=== PATIENT | female | born 1960 | race Caucasian/White ===

== ENCOUNTER → 2017-07-25 | Outpatient (REF) | payer BC | LOC: M LAB REF 15:59 | PROVIDERS: ATTEND Podiatrist | DX: L03.031 Cellulitis of right toe (principal) ==

== ENCOUNTER → 2017-10-25 | Outpatient (REF) | payer BC | LOC: M SFHCWAGY 16:09 | PROVIDERS: ATTEND Nurse Practitioner Family | DX: Z12.4 Encounter for screening for malignant neoplasm of cervix (principal) ==

== ENCOUNTER → 2017-10-25 | Outpatient (CLI) | payer BC ==
--- NOTE | 2017-10-25 16:36 | REPMRS ---
Patient History The patient states she had a clinical breast exam in 10/2017. Patient is postmenopausal. Family history of prostate cancer in father at age 50 or over and pancreatic cancer in paternal grandmother. Taking unspecified hormones for 7 years. Digital Woman Screen Mammo: October 25, 2017 - Exam #: [id number] Bilateral CC and MLO view(s) were taken. Technologist: Jasmin Longoria, Technologist Prior study comparison: September 07, 2016, digital woman screen mammo performed at [facility]. July 14, 2015, digital woman screen mammo performed at [facility]. June 23, 2014, digital woman screen mammo performed at [facility] [place]. FINDINGS: There are scattered fibroglandular densities. There has been no change in the appearance of the mammogram from the prior studies. There is a mild amount of scattered fibroglandular density which is fairly symmetric. There is no interval development of dominant mass, architectural distortion, or clustered microcalcification suggestive of malignancy. ASSESSMENT: BI-RADS/ACR category 1 mammogram. Negative. Recommendation Routine screening mammogram in 1 year (for women over age 40). This mammogram was interpreted with the aid of an FDA-approved computer-aided dectection system. Electronically Signed By: Adonis Proctor MD 10/25/17 4515
== END ==
LOC: M WHC 15:27
PROVIDERS: ATTEND Nurse Practitioner Family
DX: Z12.31 Encounter for screening mammogram for malignant neoplasm of breast (principal)

== ENCOUNTER → 2019-04-24 | Outpatient (REF) | payer BC ==
[2019-04-26 15:14] LABS: HPV HYBRID CAPTURE II Negative (Negative)
== END ==
LOC: M SFHCWAGY 15:58
PROVIDERS: ATTEND Nurse Practitioner Family
DX: Z12.4 Encounter for screening for malignant neoplasm of cervix (principal)
CPT/HCPCS: 87624; G0123

== ENCOUNTER → 2019-04-24 | Outpatient (CLI) | payer BC ==
--- NOTE | 2019-04-24 16:41 | REPMRS ---
Patient History The patient states she had a clinical breast exam in 04/2019. Patient is postmenopausal. Family history of prostate cancer at age 50 or over in father, pancreatic cancer in paternal grandmother. Taking unspecified hormones for 8 years 6 months. Digital Woman Screen Mammo: April 24, 2019 - Exam #: [id number] Bilateral CC and MLO view(s) were taken. Technologist: Jasmin Longoria, Technologist Prior study comparison: October 25, 2017, digital woman screen mammo performed at [facility] [employer] [facility]. September 07, 2016, digital woman screen mammo performed at [facility]. July 14, 2015, digital woman screen mammo performed at [facility] [employer] [facility]. FINDINGS: There are scattered fibroglandular densities. There has been no change in the appearance of the mammogram from the prior studies. There is a mild amount of scattered fibroglandular density which is fairly symmetric. There is no interval development of dominant mass, architectural distortion, or clustered microcalcification suggestive of malignancy. 3-D tomosynthesis shows no additional findings. Assessment: BI-RADS/ACR category 1 mammogram. Negative Mammogram. Recommendation Routine screening mammogram of both breasts in 1 year (for women over age 40). This patient's Lifetime Breast Cancer RIsk is estimated at 7.5 %. This mammogram was interpreted with the aid of an FDA-approved computer-aided dectection system. Electronically Signed By: Adonis Proctor MD 04/24/19 1640
== END ==
LOC: M WHC 15:21
PROVIDERS: ATTEND Nurse Practitioner Family
DX: Z12.31 Encounter for screening mammogram for malignant neoplasm of breast (principal)

== ENCOUNTER → 2020-09-15 | Outpatient (CLI) | payer BC ==
--- NOTE | 2020-09-15 16:34 | REPMRS ---
Patient History The patient states she had a clinical breast exam in 2019. Family history of prostate cancer at age 50 or over in father, pancreatic cancer in paternal grandmother. Taking unspecified hormones for 8 years 6 months. 3D TOMOSYNTHESIS WAS PERFORMED. The Shania Ordonez lifetime risk for breast cancer is 7.1%. Volpara breast density b. Digital Woman Screen Mammo: September 15, 2020 - Exam #: [id number] Bilateral CC and MLO view(s) were taken. Technologist: Lexy Simeon, Technologist Prior study comparison: April 24, 2019, bilateral digital woman screen mammo performed at [facility]. October 25, 2017, digital woman screen mammo performed at [facility]. FINDINGS: There are scattered fibroglandular densities. There has been no change in the appearance of the mammogram from the prior studies. There is a mild amount of residual fibroglandular tissue which is fairly symmetric. There is no interval development of dominant mass, architectural distortion, or clustered microcalcification suggestive of malignancy. Assessment: BI-RADS/ACR category 1 mammogram. Negative Mammogram. Recommendation Routine screening mammogram in 1 year (for women over age 40). This mammogram was interpreted with the aid of an FDA-approved computer-aided dectection system. Electronically Signed By: Frederick Lane MD 09/15/20 0828
== END ==
LOC: M WHC 14:57
PROVIDERS: ATTEND Nurse Practitioner Family
DX: Z12.31 Encounter for screening mammogram for malignant neoplasm of breast (principal); Z80.42 Family history of malignant neoplasm of prostate; Z80.0 Family history of malignant neoplasm of digestive organs

== ENCOUNTER 2023-06-18 06:58 | Day surgery (SDC) | payer BC ==
[~2023-06-18] VITALS: Ht 154.9 cm; Wt 79.3 kg
[~2023-06-18 06:58] MED LIST: ASPI81TA26 PO; BSS IRRIG/VANCO(10MG)/TOBRA(5MG)/EPINEPH(1:1000-0.5CC)500ML BAG-ORONLY IR ONE; CYCLOPENTOLATE 1% OPHTH SOLN 2ML BTL OD SCH; LIDOCAINE 3.5 % 1ML OPHTH TOPICAL GEL OU ONE; OFLOXACIN 0.3 % (OCUFLOX) OPTH SOL 5ML OD ONE; PHENYLEPHRINE 10% OPHTH SOL 5ML OD PRN; PHENYLEPHRINE 2.5% OPHTH SOL 2ML OD SCH; SERT50TA29 PO; SYNT100T PO; SYNT88TA2 PO; TROPICAMIDE 1% OPHTH SOLN 15ML OD SCH; VITA100093 PO
[2023-06-18] MEDS ORDERED: LIDOCAINE 1% SDV 5ML VIAL As Ordered ONE (07:11)
[2023-06-18] MEDS ORDERED: MIDAZOLAM INJ 2MG/2ML VIAL As Ordered ONE (07:57)
[2023-06-18] MEDS ORDERED: fentaNYL 100 MCG/2 ML INJECTION As Ordered ONE (07:57)
[2023-06-18 08:53] VITALS: BP 125/93; TEMP 97.5; O2SAT 97
== END 2023-06-18 09:05 | disposition home or self-care (01) ==
LOC: M SDC 06:58
PROVIDERS: ATTEND Ophthalmology
DX: H25.11 Age-related nuclear cataract, right eye (principal); I10 Essential (primary) hypertension; E03.9 Hypothyroidism, unspecified; K21.9 Gastro-esophageal reflux disease without esophagitis; Z88.0 Allergy status to penicillin; Z79.82 Long term (current) use of aspirin; Z79.899 Other long term (current) drug therapy
CPT/HCPCS: 66984; 92015; J2250; J3010; V2788

== ENCOUNTER 2023-07-12 07:01 | Day surgery (SDC) | payer BC ==
[~2023-07-12] VITALS: Ht 154.9 cm; Wt 78.5 kg
[~2023-07-12 07:01] MED LIST changes: -CYCLOPENTOLATE 1% OPHTH SOLN 2ML BTL OD SCH; +CYCLOPENTOLATE 1% OPHTH SOLN 2ML BTL OS SCH; +LIDOCAINE 1% SDV 5ML VIAL As Ordered ONE; -OFLOXACIN 0.3 % (OCUFLOX) OPTH SOL 5ML OD ONE; +OFLOXACIN 0.3 % (OCUFLOX) OPTH SOL 5ML OS ONE; -PHENYLEPHRINE 10% OPHTH SOL 5ML OD PRN; +PHENYLEPHRINE 10% OPHTH SOL 5ML OS PRN; -PHENYLEPHRINE 2.5% OPHTH SOL 2ML OD SCH; +PHENYLEPHRINE 2.5% OPHTH SOL 2ML OS SCH; -TROPICAMIDE 1% OPHTH SOLN 15ML OD SCH; +TROPICAMIDE 1% OPHTH SOLN 15ML OS SCH
[2023-07-12] MEDS ORDERED: fentaNYL 100 MCG/2 ML INJECTION As Ordered ONE (08:09)
[2023-07-12] MEDS ORDERED: MIDAZOLAM INJ 2MG/2ML VIAL As Ordered ONE (08:09)
[2023-07-12 08:24] VITALS: BP 132/60; TEMP 97.2; O2SAT 94
== END 2023-07-12 08:43 | disposition home or self-care (01) ==
LOC: M SDC 07:01
PROVIDERS: ATTEND Ophthalmology
DX: H25.12 Age-related nuclear cataract, left eye (principal); I10 Essential (primary) hypertension; E03.9 Hypothyroidism, unspecified; K21.9 Gastro-esophageal reflux disease without esophagitis; R06.83 Snoring; Z79.82 Long term (current) use of aspirin; Z79.899 Other long term (current) drug therapy
CPT/HCPCS: 66984; 92015; J2250; J3010; V2788

== ENCOUNTER → 2024-05-27 | Outpatient (CLI) | payer MEDICARE, BC ==
[~2024-05-27] MED LIST changes: -BSS IRRIG/VANCO(10MG)/TOBRA(5MG)/EPINEPH(1:1000-0.5CC)500ML BAG-ORONLY IR ONE; -CYCLOPENTOLATE 1% OPHTH SOLN 2ML BTL OS SCH; -LIDOCAINE 1% SDV 5ML VIAL As Ordered ONE; -LIDOCAINE 3.5 % 1ML OPHTH TOPICAL GEL OU ONE; -OFLOXACIN 0.3 % (OCUFLOX) OPTH SOL 5ML OS ONE; -PHENYLEPHRINE 10% OPHTH SOL 5ML OS PRN; -PHENYLEPHRINE 2.5% OPHTH SOL 2ML OS SCH; -TROPICAMIDE 1% OPHTH SOLN 15ML OS SCH
== END ==
LOC: M WHC 11:54
PROVIDERS: ATTEND Nurse Practitioner Family
DX: Z12.31 Encounter for screening mammogram for malignant neoplasm of breast (principal)

== ENCOUNTER → 2024-07-23 | Outpatient (CLI) | payer MEDICARE | LOC: M WUC 11:14 | PROVIDERS: ATTEND Family Medicine | DX: R06.02 Shortness of breath (principal); K44.9 Diaphragmatic hernia without obstruction or gangrene ==

== ENCOUNTER → 2024-07-23 | Outpatient (REF) | payer MEDICARE | LOC: M LAB REF 16:38 | PROVIDERS: ATTEND Family Medicine | DX: M25.59 Pain in other specified joint (principal) ==

== ENCOUNTER → 2024-07-25 | Outpatient (REF) | payer MEDICARE | LOC: M LAB REF 10:10 | PROVIDERS: ATTEND Family Medicine | DX: R19.7 Diarrhea, unspecified (principal) ==

== ENCOUNTER → 2024-08-26 | Outpatient (REF) | payer MEDICARE ==
[2024-08-26 18:50] LABS: PERCENT SATURATION 2.2 % (13.2-45.0)
[2024-08-26 18:52] LABS: FERRITIN 3.5 NG/ML (7.3-270.7)
[2024-08-26 18:55] LABS: BASOPHILS 1 % (0-1); EOSINOPHILS 7 % (0-3); LYMPHOCYTES 8 % (16-44); MICROCYTOSIS 3+; MONOCYTES 7 % (0-5); NEUTROPHILS 77 % (28-66); PLATELET ESTIMATE NORMAL (NORMAL)
[2024-08-26 18:56] LABS: HYPOCHROMASIA 2+
[2024-08-26 18:57] LABS: OVALOCYTES 1+; TEAR DROP CELLS 1+
== END ==
LOC: M LAB REF 18:06
PROVIDERS: ATTEND Family Medicine
DX: D64.9 Anemia, unspecified (principal)

== ENCOUNTER → 2024-09-01 | Outpatient (CLI) | payer MEDICARE | LOC: M LAB 13:11 | PROVIDERS: ATTEND Family Medicine | DX: D50.9 Iron deficiency anemia, unspecified (principal) ==

== ENCOUNTER 2024-09-02 07:28 | Outpatient (CLI) | payer MEDICARE ==
[~2024-09-02] VITALS: Ht 154.9 cm; Wt 77.2 kg
[2024-09-02] MEDS ORDERED: NS 250 ML IV ONE (07:30)
[2024-09-02] MEDS: ACETAMINOPHEN 500 MG TAB PO ONE (07:53)
[2024-09-02] MEDS: diphenhydrAMINE 25MG CAP PO ONE (07:53)
[2024-09-02 08:15] VITALS: BP 134/72; TEMP 98.3; O2SAT 98
[2024-09-02 08:30] VITALS: BP 126/71; TEMP 98.4; O2SAT 97
[2024-09-02 09:30] VITALS: BP 139/67; TEMP 97.8; O2SAT 99
[2024-09-02 10:05] VITALS: BP 155/76; TEMP 97.9; O2SAT 99
[2024-09-02 10:20] VITALS: BP 142/78; TEMP 98; O2SAT 100
[2024-09-02 11:45] VITALS: BP 150/77; TEMP 97.4; O2SAT 97
== END 2024-09-02 12:05 ==
LOC: M INFU 07:28
PROVIDERS: ATTEND Family Medicine
DX: D50.9 Iron deficiency anemia, unspecified (principal); Z88.0 Allergy status to penicillin
CPT/HCPCS: 36430; P9016

== ENCOUNTER → 2024-09-26 | Outpatient (CLI) | payer MEDICARE ==
[~2024-09-26] MED LIST changes: +E-Z-GAS II EFFERVESCENT PACKET (SODIUM BICARB./CITRIC ACID/SIMETHICONE) As Ordered ONE; +E-Z-HD 98% w/w 340GM SUSP BTL As Ordered ONE; +E-Z-PAQUE 96% w/w SUSP 176GM BTL As Ordered ONE
== END ==
LOC: M RAD 08:28
PROVIDERS: ATTEND Family Medicine
DX: D64.9 Anemia, unspecified (principal)

== ENCOUNTER → 2025-03-20 | Outpatient (CLI) | payer MEDICARE ==
[~2025-03-20] MED LIST changes: -E-Z-GAS II EFFERVESCENT PACKET (SODIUM BICARB./CITRIC ACID/SIMETHICONE) As Ordered ONE; -E-Z-HD 98% w/w 340GM SUSP BTL As Ordered ONE; -E-Z-PAQUE 96% w/w SUSP 176GM BTL As Ordered ONE; +FAMO40TA3; +LEVO175T2; +OMEP-173; +THERTAB52 PO; +ZOLO100T; +[UNRECOGNIZED DRUG - OTHER]
[2025-03-20 14:38] LABS: BILIRUBIN,TOTAL 0.6 MG/DL (0.3-1.2); CALCIUM LEVEL 9.4 MG/DL (8.3-10.6); CREATININE FOR GFR 0.74 MG/DL (0.55-1.30); GLOMERULAR FILTRATION RATE 89.7 (>45); TOTAL PROTEIN 7.3 G/DL (5.7-8.2)
== END ==
LOC: M PLALAB 10:16
PROVIDERS: ATTEND Internal Medicine Gastroenterology
DX: D3A.8 Other benign neuroendocrine tumors (principal)

== ENCOUNTER → 2025-03-27 | Outpatient (CLI) | payer MEDICARE ==
[~2025-03-27] MED LIST changes: +ISOVUE-370 76% 100ML VIAL ONE
== END ==
LOC: M PLAIMG 10:12
PROVIDERS: ATTEND Internal Medicine Gastroenterology
DX: D3A.8 Other benign neuroendocrine tumors (principal)
CPT/HCPCS: 71260; 74177; Q9967

== ENCOUNTER → 2025-07-06 | Outpatient (CLI) | payer MEDICARE ==
[~2025-07-06] MED LIST changes: -ISOVUE-370 76% 100ML VIAL ONE
== END ==
LOC: M WHC 13:26
PROVIDERS: ATTEND Nurse Practitioner Family
DX: Z12.31 Encounter for screening mammogram for malignant neoplasm of breast (principal); Z13.820 Encounter for screening for osteoporosis; M81.0 Age-related osteoporosis without current pathological fracture

== ENCOUNTER → 2025-07-06 | Outpatient (REF) | payer MEDICARE ==
[2025-07-08 14:37] LABS: HPV APTIMA Not Detected (Not Detected)
== END ==
LOC: M SFHCWAGY 16:46
PROVIDERS: ATTEND Nurse Practitioner Family
DX: Z12.4 Encounter for screening for malignant neoplasm of cervix (principal)
CPT/HCPCS: 87624; G0123